=== PATIENT | female | born 1940 | race Caucasian/White ===

== ENCOUNTER 2017-10-10 12:39 | Inpatient (IN) | payer OTHER, MEDICARE ==
[~2017-10-10] VITALS: Ht 175.3 cm; Wt 81.6 kg
[2017-10-10 18:50] VITALS: BP 119/65
[2017-10-10 19:14] LABS: HEMATOCRIT 28.5 % (36.0-46.0); HEMOGLOBIN 9.3 G/DL (11.9-15.5); MCH 30.7 PG (29.0-34.0); MCHC 32.6 G/DL (30.0-36.0); MCV 94.1 FL (83-99); PLATELET COUNT 165 K/uL (156-360); RBC DIS.WIDTH-CV 12.9 % (11.8-14.6); RBC DIS.WIDTH-SD 44.9 % (39-53); RED BLOOD COUNT 3.03 M/uL (3.80-5.20); WHITE BLOOD COUNT 7.7 K/uL (4.1-10.2)
[2017-10-10 19:38] LABS: ALBUMIN 3.4 G/DL (3.2-4.8); ALKALINE PHOSPHATASE 42 IU/L (3-129); ALT (GPT) 14 IU/L (3-49); AST (GOT) 15 IU/L (2-34); CHLORIDE 103 MEQ/L (99-109); CREATININE 0.7 MG/DL (0.6-1.3); GFR ESTIMATE (CALCULATED) > 59 mL/min/; GLUCOSE 175 mg/dL (70-99); POTASSIUM 3.8 MEQ/L (3.7-5.4); SODIUM 134 MEQ/L (136-147); TOTAL BILIRUBIN 0.4 MG/DL (0.0-1.0); TOTAL PROTEIN 5.4 G/DL (6.4-8.3); UREA NITROGEN (BUN) 12 mg/dL (9-23)
[2017-10-10 23:20] VITALS: BP 117/56
[2017-10-11] MEDS ORDERED: COLACE100 MG PO (01:30)
[2017-10-11] MEDS ORDERED: ASPIRIN81 M2 PO (01:30)
[2017-10-11] MEDS ORDERED: LOVENOX40 MG/0.4 SC (01:32)
[2017-10-11] MEDS ORDERED: NEURONTIN600 MG PO (01:33)
[2017-10-11] MEDS ORDERED: NOVOLOG PE100 UNITS/ SC (01:35)
[2017-10-11] MEDS ORDERED: TOPROL XL25 MG PO (01:36)
[2017-10-11] MEDS ORDERED: LANTUS 3 M100 UNITS1 SC (01:36)
[2017-10-11] MEDS ORDERED: MIDODRINE HCL2.5 MG PO (01:37)
[2017-10-11] MEDS ORDERED: MACROBID100 MG PO (01:38)
[2017-10-11] MEDS ORDERED: PAXIL10 MG PO (01:39)
[2017-10-11] MEDS ORDERED: PRAVACHOL20 MG PO (01:40)
[2017-10-11] MEDS ORDERED: SENOKOT,SENN1 TABLET PO (01:43)
[2017-10-11] MEDS ORDERED: DILAUDID2 MG PO (01:44)
[2017-10-11] MEDS ORDERED: HYDROMORPHONE HC4 MG PO (01:47)
[2017-10-11 04:38] LABS: HEMATOCRIT 28.4 % (36.0-46.0); HEMOGLOBIN 9.6 G/DL (11.9-15.5); MCH 31.5 PG (29.0-34.0); MCHC 33.8 G/DL (30.0-36.0); MCV 93.1 FL (83-99); PLATELET COUNT 146 K/uL (156-360); RBC DIS.WIDTH-CV 12.9 % (11.8-14.6); RBC DIS.WIDTH-SD 43.8 % (39-53); RED BLOOD COUNT 3.05 M/uL (3.80-5.20)
[2017-10-11 04:47] LABS: ALBUMIN 3.5 g/dL (3.2-4.8)
[2017-10-11 04:48] LABS: CHLORIDE 104 mEq/L (99-109); POTASSIUM 3.7 mEq/L (3.7-5.4); SODIUM 139 mEq/L (136-147)
[2017-10-11 04:50] LABS: GLUCOSE 123 mg/dL (70-99); PTT 28.9 SEC (25-37); TOTAL PROTEIN 5.6 g/dL (6.4-8.3)
[2017-10-11 04:52] LABS: TOTAL BILIRUBIN 0.6 mg/dL (0.0-1.0)
[2017-10-11 04:53] LABS: ALKALINE PHOSPHATASE 52 IU/L (3-129)
[2017-10-11 04:54] LABS: CREATININE 0.7 mg/dL (0.6-1.3); GFR ESTIMATE (CALCULATED) > 59 mL/min/
[2017-10-11 04:55] LABS: AST (GOT) 15 IU/L (2-34); UREA NITROGEN (BUN) 9 mg/dL (9-23)
[2017-10-11 04:56] LABS: ALT (GPT) 16 IU/L (3-49)
[2017-10-11 05:00] LABS: TROP-I INTERPRETATION NEGATIVE; TROPONIN-I < 0.01 ng/mL (0.0-0.30)
[2017-10-11 11:23] LABS: HEMOGLOBIN A1c (GLYCOHEMOGLOB) 6.4 % (Below 5.7)
== END 2017-10-11 04:41 | DRG 559 ==
LOC: 3WEST 12:39
PROVIDERS: Internal Medicine; Psychiatry & Neurology Neurology
PROC: F07M0ZZ Range of Motion and Joint Mobility Treatment of Musculoskeletal System - Whole Body (ICD-10-PCS; principal; 2017-10-10)
DX: Z47.1 Aftercare following joint replacement surgery (principal); I69.351 Hemiplegia and hemiparesis following cerebral infarction affecting right dominant side; I63.50 Cerebral infarction due to unspecified occlusion or stenosis of unspecified cerebral artery; R47.01 Aphasia; R29.711 NIHSS score 11; G89.18 Other acute postprocedural pain; Z96.612 Presence of left artificial shoulder joint; E11.65 Type 2 diabetes mellitus with hyperglycemia; I48.0 Paroxysmal atrial fibrillation; I10 Essential (primary) hypertension; R33.9 Retention of urine, unspecified; D64.9 Anemia, unspecified; I95.1 Orthostatic hypotension; I25.10 Atherosclerotic heart disease of native coronary artery without angina pectoris; I25.2 Old myocardial infarction; G47.33 Obstructive sleep apnea (adult) (pediatric); J45.909 Unspecified asthma, uncomplicated; K21.9 Gastro-esophageal reflux disease without esophagitis; R32 Unspecified urinary incontinence; Z85.3 Personal history of malignant neoplasm of breast; Z90.710 Acquired absence of both cervix and uterus; Z91.041 Radiographic dye allergy status; M19.90 Unspecified osteoarthritis, unspecified site; Z91.81 History of falling; Z79.82 Long term (current) use of aspirin; Z79.4 Long term (current) use of insulin; Z79.02 Long term (current) use of antithrombotics/antiplatelets
CPT/HCPCS: 70450; 80053; 82948; 83036; 83605; 84484; 85027; 85610; 85730; 86850; 86900; 86901; 87040; 93005; J1650; J1815

== ENCOUNTER 2017-10-11 05:12 | Inpatient (IN) | payer OTHER, MEDICARE ==
[~2017-10-11 05:12] MED LIST: ASPIRIN81 M2 PO; COLACE100 MG PO; DILAUDID2 MG PO; HYDROMORPHONE HC4 MG PO; LANTUS 3 M100 UNITS1 SC; LOVENOX40 MG/0.4 SC; MACROBID100 MG PO; MIDODRINE HCL2.5 MG PO; NEURONTIN600 MG PO; NOVOLOG PE100 UNITS/ SC; PAXIL10 MG PO; PRAVACHOL20 MG PO; SENOKOT,SENN1 TABLET PO; TOPROL XL25 MG PO
[2017-10-13 05:00] VITALS: BP 168/98
[2017-10-13 06:00] VITALS: BP 184/90
== END 2017-10-11 06:20 | disposition short-term general hospital (02) | DRG 65 ==
LOC: 4WEST 05:12
DX: I63.9 Cerebral infarction, unspecified (principal); I69.351 Hemiplegia and hemiparesis following cerebral infarction affecting right dominant side; I95.9 Hypotension, unspecified; I10 Essential (primary) hypertension; J45.909 Unspecified asthma, uncomplicated; I50.9 Heart failure, unspecified; G47.33 Obstructive sleep apnea (adult) (pediatric); E11.65 Type 2 diabetes mellitus with hyperglycemia; R01.1 Cardiac murmur, unspecified; I48.0 Paroxysmal atrial fibrillation; E66.9 Obesity, unspecified; I44.0 Atrioventricular block, first degree; K21.9 Gastro-esophageal reflux disease without esophagitis; R47.01 Aphasia; Z79.4 Long term (current) use of insulin; Z91.041 Radiographic dye allergy status; Z90.710 Acquired absence of both cervix and uterus; Z79.82 Long term (current) use of aspirin; Z79.02 Long term (current) use of antithrombotics/antiplatelets; Z68.24 Body mass index [BMI] 24.0-24.9, adult; Z96.653 Presence of artificial knee joint, bilateral; Z96.612 Presence of left artificial shoulder joint

== ENCOUNTER 2017-10-16 12:54 | Inpatient (IN) | payer OTHER, MEDICARE ==
[~2017-10-16 12:54] MED LIST changes: +LOPRESSOR25 MG PO; -PRAVACHOL20 MG PO; +ROSUVASTATIN CA10 MG PO; -TOPROL XL25 MG PO
[2017-10-16] MEDS ORDERED: CLOPIDOGREL75 MG PO (20:05)
[2017-10-16] MEDS ORDERED: DICLOFENAC SOD100 G1 TP (20:06)
[2017-10-16] MEDS ORDERED: GLUCOPHAGE500 MG PO (20:07)
[2017-10-16] MEDS ORDERED: MAXIMUM DAILY1 EAC1 PO (20:10)
[2017-10-16] MEDS ORDERED: MORPHINE SULFAT15 M1 PO (20:15)
[2017-10-16] MEDS ORDERED: TRULICITY0.75 MG/0. SC (20:17)
[2017-10-16 20:28] VITALS: BP 133/61
[2017-10-17 00:03] VITALS: BP 146/70
[2017-10-17 05:03] VITALS: BP 130/65
[2017-10-17 06:51] LABS: HEMATOCRIT 33.1 % (36.0-46.0); HEMOGLOBIN 10.4 G/DL (11.9-15.5); MCH 30.1 PG (29.0-34.0); MCHC 31.4 G/DL (30.0-36.0); MCV 95.7 FL (83-99); RBC DIS.WIDTH-CV 13.3 % (11.8-14.6); RBC DIS.WIDTH-SD 46.3 % (39-53); RED BLOOD COUNT 3.46 M/uL (3.80-5.20)
[2017-10-17 07:07] LABS: PLATELET COUNT 313 K/uL (156-360)
[2017-10-17 07:15] LABS: ALBUMIN 3.9 G/DL (3.2-4.8); ALKALINE PHOSPHATASE 64 IU/L (3-129); ALT (GPT) 15 IU/L (3-49); AST (GOT) 16 IU/L (2-34); CHLORIDE 103 MEQ/L (99-109); CREATININE 0.7 MG/DL (0.6-1.3); GFR ESTIMATE (CALCULATED) > 59 mL/min/; GLUCOSE 154 mg/dL (70-99); SODIUM 139 MEQ/L (136-147); UREA NITROGEN (BUN) 13 mg/dL (9-23)
[2017-10-17 07:22] LABS: POTASSIUM 4.7 MEQ/L (3.7-5.4); TOTAL BILIRUBIN 0.6 MG/DL (0.0-1.0)
[2017-10-17 14:36] VITALS: BP 124/70
[2017-10-18 04:09] VITALS: BP 125/59
[2017-10-18 16:00] VITALS: BP 107/91
[2017-10-19 04:14] VITALS: BP 115/58
[2017-10-19 16:00] VITALS: BP 115/67
[2017-10-19 21:07] LABS: APPEARANCE CLEAR ((CLEAR)); BILIRUBIN NEGATIVE; BLOOD NEGATIVE; COLOR STRAW ((YELLOW)); GLUCOSE (STRIP) NEGATIVE; KETONES NEGATIVE; LEUKOCYTES NEGATIVE; NITRITE NEGATIVE; PROTEIN (STRIP) NEGATIVE; SPECIFIC GRAVITY 1.006 (1.000-1.030); UROBILINOGEN 0.2 MG/DL (0.2-1.0)
[2017-10-20 03:51] VITALS: BP 150/77
[2017-10-20 05:09] LABS: BASOPHIL (%) 0.8 % (0-1); EOSINOPHIL (%) 1.4 % (0-5); EOSINOPHIL COUNT 0.1 K/uL (0-0.3); HEMOGLOBIN 9.8 G/DL (11.9-15.5); IMMATURE GRANULOCYTE (%) 0.4 % (0.0-0.7); LYMPHOCYTE (%) 31.1 % (15-42); LYMPHOCYTE COUNT 1.5 K/uL (1.0-2.8); MCH 29.7 PG (29.0-34.0); MCHC 31.6 G/DL (30.0-36.0); MCV 93.9 FL (83-99); MONOCYTE (%) 10.5 % (3-12); MONOCYTE COUNT 0.5 K/uL (0-0.8); NEUTROPHIL (%) 55.8 % (45-76); NEUTROPHIL COUNT 2.7 K/uL (1.8-6.4); PLATELET COUNT 284 K/uL (156-360); RBC DIS.WIDTH-CV 13.3 % (11.8-14.6); RBC DIS.WIDTH-SD 45.3 % (39-53); WHITE BLOOD COUNT 4.9 K/uL (4.1-10.2)
[2017-10-20 06:06] LABS: CHLORIDE 106 MEQ/L (99-109); CREATININE 0.6 MG/DL (0.6-1.3); GFR ESTIMATE (CALCULATED) > 59 mL/min/; GLUCOSE 132 mg/dL (70-99); POTASSIUM 4.1 MEQ/L (3.7-5.4); SODIUM 141 MEQ/L (136-147); UREA NITROGEN (BUN) 14 mg/dL (9-23)
[2017-10-20 16:41] VITALS: BP 99/56
[2017-10-21 06:24] VITALS: BP 108/50
[2017-10-21 15:25] VITALS: BP 132/65
[2017-10-22 05:53] VITALS: BP 102/57
[2017-10-22 15:12] VITALS: BP 128/64
[2017-10-23 05:57] VITALS: BP 103/63
[2017-10-23 20:50] VITALS: BP 117/58
[2017-10-24 02:58] VITALS: BP 129/76
[2017-10-24 16:01] VITALS: BP 140/69
[2017-10-25 05:53] VITALS: BP 111/59
[2017-10-25 15:44] VITALS: BP 121/61
[2017-10-26 05:00] VITALS: BP 138/50
[2017-10-26 07:11] LABS: HEMATOCRIT 32.1 % (36.0-46.0); HEMOGLOBIN 10.5 G/DL (11.9-15.5); MCH 31.3 PG (29.0-34.0); MCHC 32.7 G/DL (30.0-36.0); MCV 95.5 FL (83-99); PLATELET COUNT 286 K/uL (156-360); RBC DIS.WIDTH-CV 13.7 % (11.8-14.6); RBC DIS.WIDTH-SD 47.7 % (39-53); RED BLOOD COUNT 3.36 M/uL (3.80-5.20); WHITE BLOOD COUNT 4.3 K/uL (4.1-10.2)
[2017-10-26 07:37] LABS: ALBUMIN 3.7 G/DL (3.2-4.8); ALKALINE PHOSPHATASE 64 IU/L (3-129); ALT (GPT) 16 IU/L (3-49); AST (GOT) 15 IU/L (2-34); CHLORIDE 104 MEQ/L (99-109); CREATININE 0.6 MG/DL (0.6-1.3); GFR ESTIMATE (CALCULATED) > 59 mL/min/; GLUCOSE 188 mg/dL (70-99); POTASSIUM 4.4 MEQ/L (3.7-5.4); SODIUM 139 MEQ/L (136-147); TOTAL BILIRUBIN 0.3 MG/DL (0.0-1.0); TOTAL PROTEIN 5.5 G/DL (6.4-8.3); UREA NITROGEN (BUN) 10 mg/dL (9-23)
[2017-10-26 15:18] VITALS: BP 129/69
[2017-10-27 05:14] VITALS: BP 118/63
== END 2017-10-27 14:15 | disposition home or self-care (01) | DRG 560 ==
LOC: 3WEST 12:54
PROVIDERS: Family Medicine Sports Medicine; Physical Medicine & Rehabilitation Pain Medicine
PROC: F07M0ZZ Range of Motion and Joint Mobility Treatment of Musculoskeletal System - Whole Body (ICD-10-PCS; principal; 2017-10-16)
DX: Z47.1 Aftercare following joint replacement surgery (principal); I69.351 Hemiplegia and hemiparesis following cerebral infarction affecting right dominant side; N39.0 Urinary tract infection, site not specified; I10 Essential (primary) hypertension; E11.9 Type 2 diabetes mellitus without complications; E78.5 Hyperlipidemia, unspecified; G89.18 Other acute postprocedural pain; D62 Acute posthemorrhagic anemia; D69.6 Thrombocytopenia, unspecified; I25.10 Atherosclerotic heart disease of native coronary artery without angina pectoris; Z96.612 Presence of left artificial shoulder joint; G47.30 Sleep apnea, unspecified; Z79.84 Long term (current) use of oral hypoglycemic drugs; R41.0 Disorientation, unspecified; R47.01 Aphasia; Z85.41 Personal history of malignant neoplasm of cervix uteri; Z90.710 Acquired absence of both cervix and uterus
CPT/HCPCS: 80048; 80053; 81003; 82948; 85025; 85027; 97110 GO; 97530 GP; J1650; J1815